=== PATIENT | female | born 1950 | race Caucasian/White ===

== ENCOUNTER 2024-01-25 18:45 | Emergency (ER) | payer OTHER ==
[~2024-01-25] VITALS: Ht 167.6 cm; Wt 66.0 kg
[2024-01-25 18:59] VITALS: TEMP 98.7; O2SAT 100
[2024-01-25] MEDS: FAMOTIDINE 20MG TABLET PO ONE (20:06)
[2024-01-25] MEDS: DIPHENHYDRAMINE 25MG CAPSULE PO ONE (20:06)
[2024-01-25] MEDS: DEXAMETHASONE 4MG TABLET PO ONE (20:14)
[2024-01-25] MEDS: EPINEPHRINE 1:1000 1 MG/ML AMP INJ ONE (20:14)
[2024-01-25 22:00] VITALS: BP 121/43; PULSE 71; RESP 16
== END 2024-01-25 22:36 | disposition home or self-care (01) ==
LOC: ER 18:45
DX: K14.0 Glossitis (principal)
CPT/HCPCS: 99284; J8540; Q0163; J3490